=== PATIENT | female | born 1945 | race Caucasian/White ===

== ENCOUNTER → 2016-10-26 | Outpatient (CLI) | payer OTHER ==
[~2016-10-26] MED LIST: ASPEC81 PO; GLC/500 PO
--- NOTE | 2016-10-26 12:31 | MAMMOGRAPHY REPORT ---
BILATERAL DIGITAL SCREENING MAMMOGRAM WITH CAD: 10/26/2016 CLINICAL HISTORY: Routine screening examination. TECHNIQUE: Bilateral CC, MLO and XCCL views were obtained. Current study was also evaluated with a Computer Aided Detection (CAD) system. COMPARISON: Comparison is made to exams dated: 10/23/2015 mammogram, 07/18/2013 mammogram, 07/22/2014 mammogram, 07/16/2012 mammogram, 07/18/2011 ultrasound, and 03/15/2010 mammogram - [facility]. BREAST COMPOSITION: The tissue of both breasts is heterogeneously dense, which may obscure small ma sses. FINDINGS: There is a newly visualized 8.4 mm mass in the lateral posterior left breast, best seen o n the CC and XCCL views but thought to project superiorly on the MLO view. Further evaluation with spot compression tomosynthesis views and targeted ultrasound are recommended. There are 2 stable masses in the anterior and posterior left breast. The lobulated anterior mass me asures 7.6 mm, and the upper outer far posterior mass measures 5.5 mm. Both of these masses are unc hanged mammographically dating back to at least 03/12/2009, therefore likely benign. There is stabl e asymmetry in the lateral posterior right breast on the CC view. Benign coarse calcifications and a stable metallic marker in the right breast. No other suspicious mass, architectural distortion or cluster of microcalcifications is seen. IMPRESSION: ACR BI-RADS CATEGORY 0: INCOMPLETE EVALUATION: NEED ADDITIONAL IMAGING EVALUATION The newly visualized a 0.4 mm mass in the left lateral posterior breast needs additional evaluation. The patient will be called to schedule an appointment. Approximately 10% of breast cancers are not detected with mammography. A negative mammographic repor t should not delay biopsy if a clinically suggestive mass is present. Jane Canas M.D. ay/:10/26/2016 08:18:41 Fancy Stitcher: Francine GUADARRAMA(Osiris)(James), [facility] letter sent: Addl Imaging 0 BI-RADS Code: ACR BI-RADS Category 0: Incomplete Evaluation: Need Additional Imaging Evaluation
== END | disposition home or self-care (01) ==
LOC: C.MAMM 07:18
PROVIDERS: ATTEND Family Medicine
DX: Z12.31 Encounter for screening mammogram for malignant neoplasm of breast (principal); N63 Unspecified lump in breast

== ENCOUNTER → 2016-11-09 | Outpatient (CLI) | payer OTHER ==
--- NOTE | 2016-11-09 13:35 | MAMMOGRAPHY REPORT ---
UNILATERAL LEFT DIGITAL DIAGNOSTIC MAMMOGRAM TOMOSYNTHESIS AND TARGETED LEFT ULTRASOUND: 11/09/2016 CLINICAL HISTORY: 71-year-old woman called back from screening mammography for a possible new mass i n the upper outer posterior left breast. TECHNIQUE: Spot compression left CC and MLO to the digital and tomosynthesis images were obtained. COMPARISON: Comparison is made to exams dated: 10/26/2016 mammogram, 10/23/2015 mammogram, 07/22/2014 ma mmogram, 07/18/2013 mammogram, 07/16/2012 mammogram, and 07/18/2011 ultrasound - [facility]. BREAST COMPOSITION: The tissue of the left breast is heterogeneously dense, which may obscure small masses. FINDINGS: There are at least 5 masses identified within the visualized left breast. The largest ci rcumscribed oval mass is in the subareolar breast measuring 21.0 x 9.8 x 15.0 mm. A second lobulate d and circumscribed mass in the anterior upper outer left breast measures 7.9 x 6.9 mm. A reniform 5.8 mm mass with central lucent notch compatible with a lymph node is identified in the upper outer posterior left breast. A rounded circumscribed 7 x 5 mm mass is seen in the upper outer posterior b reast, projecting over the pectoralis muscle on the MLO view. The fifth mass just anterior to the f ourth also in the upper outer posterior left breast and projecting over the pectoralis muscle is par tially circumscribed but partially obscured measuring 9 x 6 mm. Further evaluation with ultrasound was performed. Real-time high resolution sonographic evaluation was performed in the upper outer quadrant of the le ft breast. In the left axilla a morphologically normal lymph node is identified. In the subareolar /retroareolar breast a benign anechoic simple cyst is again seen correlating with the dominant mammo graphic mass. In the 2:00 left breast, 1 cm from the nipple, there is a lobulated hypoechoic solid mass measuring 6.9 x 11.2 x 3.7 mm. This correlates with a mass that has been stable mammographical ly dating back to at least 03/12/2009, therefore likely benign. In the 1:00 left breast, 8 cm from the nipple, there is a round nearly anechoic cystic appearing mass measuring 4.9 x 5.1 x 5.0 mm. Ho wever, there is isoechoic nodular tissue within that does not demonstrate vascularity. It is unclea r if this could be artifactual or represents an internal solid nodular component. Nevertheless, cys t aspiration is recommended to exclude the possibility of any residual solid component. There is a hypoechoic solid vascular mass with microlobulated borders in the 1:00 left breast, 7 cm from the ni pple, measuring 6.4 x 5.6 x 8.3 mm. This is thought to correlate with the mammographic mass with pa rtially obscured borders. Review of prior ultrasounds. Demonstrate this mass in the past. Therefo re, it is considered indeterminate and definitive characterization with ultrasound guided core biops y is recommended. A morphologically normal intramammary lymph node is identified in the 3:00 left b reast, 8 cm from the nipple with a thin cortex measuring 0.8 mm. This is thought to correlate with the fifth mammographic mass as described above. IMPRESSION: ACR BI-RADS CATEGORY 4B: INTERMEDIATE SUSPICION FOR MALIGNANCY, TARGETED ULTRASOUND ACR BI-RADS CATEGORY 4B: INTERMEDIATE SUSPICION FOR MALIGNANCY 1. Ultrasound guided core biopsy is recommend for an indeterminate solid vascular mass in the 1:00 left breast, 7 cm from the nipple, thought to correlate with a possibly new mammographic mass. 2. Ultrasound-guided cyst aspiration is recommended for a cystic appearing mass with possible inter nal solid component in the 1:00 left breast, 8 cm from the nipple. 3. Other masses in the anterior left breast have been stable dating back to 2008 and are therefore considered benign. 4. A morphologically normal intramammary lymph node is seen in the 3:00 left breast. These results and recommendations were discussed with the patient at the time of the exam. She tent atively scheduled the ultrasound guided core biopsy and cyst aspiration prior to leaving our departm ent. Approximately 10% of breast cancers are not detected with mammography. A negative mammographic repor t should not delay biopsy if a clinically suggestive mass is present. Jane Canas M.D. ay/:11/09/2016 10:43:28 Song Writer: Anila Argueta RT(R)(James), [facility] letter sent: Abnormal 4/5 BI-RADS Code: ACR BI-RADS Category 4B: Intermediate Suspicion For Malignancy Ultrasound BI-RADS: AC R BI-RADS Category 4B: Intermediate Suspicion For Malignancy
== END | disposition home or self-care (01) ==
LOC: C.MAMM 08:42
PROVIDERS: ATTEND Family Medicine
DX: N63 Unspecified lump in breast (principal)

== ENCOUNTER → 2016-11-10 | Outpatient (CLI) | payer OTHER ==
--- NOTE | 2016-11-10 13:31 | Discharge Instructions ---
Discharge Instructions Procedure Procedure Date: Nov 10, 2016. Reason for visit: Left Masses. Discharge Discharge Date: Nov 10, 2016. Discharge Diagnosis: status post breast biopsy Instructions Activity Recommendations: Additional Limitations (see below) Return to School/Work: no limitations Recommended Home Diet: No Limitations Provider Instructions: ACTIVITY RECOMMENDATIONS: * No lifting, pushing, pulling or exercising the affected side for three days. RETURN TO SCHOOL/WORK: * You may return to work/school after the procedure, but do not perform any strenuous activities for 24 to 48 hours. MEDICATIONS: * Tylenol (two 325 mg) every four to six hours if needed for mild pain (if not allergic to Tylenol). DIET: * Resume previous diet. SPECIAL CARE INSTRUCTIONS: * Keep biopsy site dry for 24 hours. May shower after 24 hours, but do not soak (bathe) incision. * May remove Tegaderm (plastic patch) tomorrow AFTER showering. * Leave the steri-strips on for one week. Allow the steri-strips to fall off by themselves. If not off after one week, you may remove them. You may place a Bandaid crosswise over the strips, if desired. * Apply ice 10 minutes on and 10 minutes off as needed. * Wear a bra at bedtime to sleep more comfortably for 2-3 days. * Your referring physician should have the results after approximately 5 to 7 business days. * Call for unusual bleeding, fever, drainage, etc or if you have any questions call during normal business hours or after hours call Dr Alcazar, [phone]. FOLLOW UP VISIT: Follow-up with Referring Physician as scheduled. Allergies Coded Allergies: No Known Allergies (Unverified , 12/22/15) Desean Soto Recommendations: Call your doctor if: * Temperature above 101 degrees * Pain not relieved by pain medicine ordered * There is increased drainage or redness from any incision * You have any unanswered questions or concerns. Your Doctors Instructions noted above were prepared by provider Margareth Alcazar. Patient Signature Section: Patient Instructions Signature Page Hawa Farrisant Patient (or Guardian) Signature/Date: I have read and understand the instructions given to me by my caregivers. Caregiver/RN/Doctor Signature/Date: The above-named patient and/or guardian has received patient instructions on this date. + Original Patient Signature Page (only) stays with chart. Please make copy for patient.
--- NOTE | 2016-11-10 15:20 | MAMMOGRAPHY REPORT ---
ASPIRATION LEFT BREAST: 11/10/2016 CLINICAL HISTORY: Left 1:00 breast mass. PATIENT CONSENT: The procedure and risks of ultrasound-guided cyst aspiration were discussed in full with the patient. Both oral and written consents were obtained. PROCEDURE DESCRIPTION: With ultrasound guidance, aseptic technique, and 1% lidocaine as a local anes thetic, the mass of concern in the left breast at 1:00, 8 cm from the nipple, was aspirated to compl etion. A small amount of bloody fluid was aspirated and sent to cytology for analysis. Direct pres sure was applied to the site immediately post procedure and hemostasis was achieved. The patient to lerated the procedure without complication. She was given wound care instructions. COMPARISON: Comparison is made to exams dated: 11/09/2016 mammogram, 10/23/2015 mammogram, 07/22/2014 m ammogram, 07/18/2013 mammogram, and 07/16/2012 mammogram - [facility]. IMPRESSION: ASPIRATION Successful ultrasound-guided aspiration of the left 1:00 breast cyst. A small amount of bloody flui d was aspirated and sent to cytology for analysis. The patient will receive pathology results from her referring physician. Margareth Alcazar M.D. ah/:11/10/2016 14:15:27 Attending Technologist: Ana GUADARRAMA(R)(M), [facility] Discharge Rn: Margareth Alcazar MD, [facility]
--- NOTE | 2016-11-10 15:20 | MAMMOGRAPHY REPORT ---
UNILATERAL LEFT DIGITAL DIAGNOSTIC MAMMOGRAM: 11/10/2016 CLINICAL HISTORY: Status post ultrasound-guided biopsy of the left 1:00 breast mass. TECHNIQUE: Postprocedural left CC and ML views were obtained. COMPARISON: Comparison is made to exams dated: 11/09/2016 mammogram, 10/26/2016 mammogram, 10/23/2015 ma mmogram, 07/22/2014 mammogram, 07/18/2013 mammogram, and 07/16/2012 mammogram - [facility]. BREAST COMPOSITION: The tissue of the left breast is heterogeneously dense, which may obscure small masses. FINDINGS: A new biopsy marker clip is seen within the left upper outer quadrant at the site of the biopsied 1:00 breast mass. Post biopsy changes are seen in the region, without evidence of a signif icant hematoma. IMPRESSION: POST PROCEDURE IMAGING FOR MARKER PLACEMENT New biopsy marker clip status post ultrasound-guided biopsy of the left 1:00 breast mass. Pathology results are pending. Approximately 10% of breast cancers are not detected with mammography. A negative mammographic repor t should not delay biopsy if a clinically suggestive mass is present. Margareth Alcazar M.D. /:11/10/2016 14:32:21 Gun Number: Ana GUADARRAMA(Osiris)(M), [facility] BI-RADS Code: Post Procedure Imaging For Marker Placement
--- NOTE | 2016-11-10 15:20 | MAMMOGRAPHY REPORT ---
ULTRASOUND GUIDED BIOPSY LEFT BREAST: 11/10/2016 CLINICAL HISTORY: Left 1 o'clock breast mass. PATIENT CONSENT: The procedure, risks and benefits were discussed with the patient and informed writ ten consent was obtained. A timeout was performed immediately prior to the procedure. PROCEDURE DESCRIPTION: With ultrasound guidance, aseptic technique, and lidocaine as the local anest hetic (1% lidocaine to anesthetize the skin and 1% lidocaine with epinephrine to anesthetize the oswaldo per tissues), the mass of concern in the left 1:00 breast was sampled 7 times with a 14-gauge Achiev e biopsy needle. Immediately thereafter, with ultrasound guidance, aseptic technique, and lidocaine as the local anesthetic, a metallic localizer clip was placed centrally in the mass. Direct pressu re was applied to the site immediately post procedure and hemostasis was achieved. Postprocedure un ilateral mammograms were performed to confirm placement of the clip in the expected location of the breast mass. The patient tolerated the procedure without complication. She was given wound care in structions. The specimens were sent to pathology for analysis. COMPARISON: Comparison is made to exams dated: 11/09/2016 ultrasound, 11/09/2016 mammogram, 10/26/2016 mammogram, 07/22/2014 mammogram, 10/23/2015 mammogram, and 07/18/2013 mammogram - [facility]. IMPRESSION: ULTRASOUND GUIDED BIOPSY Ultrasound guided core needle biopsy of the left 1:00 breast mass, with clip placement. The patient will receive pathology results from her ordering physician. Margareth Alcazar M.D. ah/:11/10/2016 14:30:21 Attending Technologist: Ana GUADARRAMA(Osiris)(M), [facility] Sales Agent Pest Control Service: Margareth Alcazar MD, [facility]
== END | disposition home or self-care (01) ==
LOC: C.MAMM 12:35
PROVIDERS: ATTEND Family Medicine
DX: N63 Unspecified lump in breast (principal)

== ENCOUNTER → 2017-06-15 | Outpatient (CLI) | payer OTHER ==
--- NOTE | 2017-06-15 12:28 | MAMMOGRAPHY REPORT ---
UNILATERAL LEFT DIGITAL DIAGNOSTIC MAMMOGRAM TOMOSYNTHESIS WITH CAD: 06/15/2017 CLINICAL HISTORY: History of left breast cancer status post lumpectomy November 2016. She did not have radiation therapy. The patient reports no current complaints. TECHNIQUE: Breast tomosynthesis in addition to standard 2D mammography was performed. Current study was also evaluated with a Computer Aided Detection (CAD) system. Left CC and MLO 2-D and tomosynthes is images and spot magnification left CC and ML views were obtained. COMPARISON: Comparison is made to exams dated: 11/10/2016 mammogram, 11/10/2016 aspiration, 11/10/2016 ultrasound biopsy, 11/09/2016 ultrasound, 11/09/2016 mammogram, and 10/26/2016 mammogram - [facility]. BREAST COMPOSITION: The tissue of the left breast is heterogeneously dense, which may obscure small masses. FINDINGS: There are new postsurgical changes in the left upper outer quadrant posteriorly from prior lumpectomy, including new density and architectural distortion at the lumpectomy bed. A linear scar marker denotes a scar on the left upper outer breast. Spot magnification views of the lumpectomy bed demonstrate no suspicious masses or clusters of microcalcifications. A benign 7 mm intramammary lym ph node in the left lateral posterior breast is stable. The remainder of the left breast is stable compared to prior exams, without suspicious masses, calcif ications, or areas of architectural distortion noted. Lobulated circumscribed benign-appearing 7 mm mass in the left lateral anterior breast is stable compared to multiple prior exams. Fluctuating ova l circumscribed benign-appearing 2.1 cm mass in the left subareolar breast is again noted, and was sh own to represent a benign cyst on prior 2010 ultrasound exam. IMPRESSION: ACR-BI-RADS CATEGORY 3: PROBABLY BENIGN Expected postsurgical changes in the left breast from prior lumpectomy, without mammographic evidence of malignancy in the left breast. Recommend bilateral diagnostic tomosynthesis mammograms in 6 ja hs, to reevaluate the left breast postsurgical changes and for routine mammography of the right breas t. The patient has been verbally notified of the results. Approximately 10% of breast cancers are not detected with mammography. A negative mammographic report should not delay biopsy if a clinically suggestive mass is present. Margareth Alcazar M.D. /:06/15/2017 11:03:22 Core Analysis Operator: Francine Mclean, [facility] letter sent: Personal History 3 BI-RADS Code: ACR-BI-RADS Category 3: Probably Benign
== END | disposition home or self-care (01) ==
LOC: C.MAMM 10:38
PROVIDERS: ATTEND Surgery
DX: Z08 Encounter for follow-up examination after completed treatment for malignant neoplasm (principal); Z85.3 Personal history of malignant neoplasm of breast; Z98.890 Other specified postprocedural states

== ENCOUNTER → 2017-09-19 | Outpatient (CLI) | payer OTHER ==
[2017-09-19 11:44] LABS: BASO % 0.5 %; BASO ABS # 0.03 K/uL (0-0.2); EOS % 3.6 %; EOS ABS # 0.22 K/uL (0-0.5); HEMATOCRIT 39.6 % (37-47); HEMOGLOBIN 13.2 g/dL (12.0-16.0); IG# 0.01 K/uL (0.00-0.02); LYMPH % 32.4 %; LYMPH ABS # 1.96 K/uL (1.2-3.4); MEAN CELL VOLUME 94.7 fL (80-100); MEAN CORPUSCULAR HEMOGLOBIN 31.6 pg (25-34); MEAN CORPUSCULAR HGB CONC 33.3 g/dl (32-36); MEAN PLATELET VOLUME 10.2 fL (7.4-10.4); MONO % 13.7 %; MONO ABS # 0.83 K/uL (0.11-0.59); NEUT % 49.6 %; PLATELET COUNT 272 K/uL (130-400); RED CELL DISTRIBUTION WIDTH CV 13.9 % (11.5-14.5); WHITE BLOOD COUNT 6.05 K/uL (4.8-10.8)
[2017-09-19 11:50] LABS: INR 0.9 (0.9-1.1)
== END | disposition home or self-care (01) ==
LOC: C.LABSPEC 11:06
PROVIDERS: ATTEND Family Medicine
DX: Z01.812 Encounter for preprocedural laboratory examination (principal)

== ENCOUNTER → 2017-09-29 | Outpatient (CLI) | payer OTHER ==
--- NOTE | 2017-09-29 14:42 | EXERCISE STRESS ECHO ---
*NOTICE TO RECEIVING LIBERTARIAN AGENCY This information is strictly Confidential and protected under [place] law. [place] law prohibits you from making any further disclosure of this information unless further disclosure is expressly permitted by the written consent of the person to whom it pertains or is authorized by law. A general authorization for the release of medical or other information is not sufficient for this purpose. Hospital accepts no responsibility if the information is made available to any other person, INCLUDING THE PATIENT. Interpretation Summary * Name: KELVIN HAGER Study Date: 09/29/2017 09:25 AM BP: 157/88 mmHg * Patient Location: [facility] HR: 91 * : 1945 (M/d/yyyy) Gender: Female Height: 70 in * Age: 72 yrs Ethnicity: CA Weight: 178 lb * Ordering Physician: Reyna Dolan * Referring Physician: Reyna Dolan D.O. * Performed By: Taisha Portillo RDCS * * Reason For Study: Abnormal EKG * BSA: 2.0 m2 * -- Conclusions -- * 1. Negative exercise stress echo for ischemia at >110% MPHR. * 2. Negative stress ECG for ischemia. * 3. Above average functional capacity. Exercised 6:21 min, achieved 7.5 METS. * 4. Normal hemodynamic response to exercise. * 5. Normal resting LV size and function. LVEF 60-65%. No regional wall motion abnormalities. Mild concentric LVH. Normal RV size and function. No significant valvular abnormalities. Procedure Details * ECHOEX, CPT #66467 * ECHO DOPPLER, CPT #[id number] * ECHO COLOR FLOW, CPT #[id number] Left Ventricle * The left ventricle is grossly normal size. * There is mild concentric left ventricular hypertrophy. * Ejection Fraction = 55-60%. * The left ventricular ejection fraction increases normally with stress. The left ventricular end-systolic cavity size reduces post-stress (normal response). The left ventricular wall motion with stress is normal. Right Ventricle * The right ventricle is grossly normal size. * The right ventricular systolic function is normal as assessed by tricuspid annular plane systolic excursion (TAPSE) (normal >1.5 cm). Atria * The left atrial size is normal. * Right atrial size is normal. * No ASD detected; PFO is not assessed. Mitral Valve * The mitral valve is grossly normal. * There is no mitral valve stenosis. * There is no mitral regurgitation noted. Tricuspid Valve * The tricuspid valve is not well visualized, but is grossly normal. * There is no tricuspid stenosis. * There is trace tricuspid regurgitation. Aortic Valve * The aortic valve opens well. * The aortic valve is trileaflet. * No hemodynamically significant valvular aortic stenosis. * There is no significant aortic regurgitation. Great Vessels * The aortic root and proximal ascending aorta are normal sized. Pericardium * There is no pericardial effusion. Stress Parameters * Normal baseline electrocardiogram. * Stress ECG: No ST changes. No arrhythmias. * Arrhythmia induced during stress: occasional PVC's. * Rest heart rate was '91' BPM. * Rest blood pressure was '157/88' * Maximum heart rate achieved was 171 bpm. * Maximum heart rate was 114 % of maximum age-predicted heart rate. * Maximum blood pressure was '197/86' * Total exercise time was '06:21' * Maximum exercise MET level achieved was '7.50' METS * Maximum treadmill speed was '3.40' miles per hour. * Maximum treadmill elevation was '14.00'% grade. MMode 2D Measurements and Calculations IVSd 1.2 cm IVSs 1.3 cm LVIDd 4.5 cm LVIDs 3.1 cm LVPWd 1.0 cm LVPWs 2.0 cm IVS/LVPW 1.2 FS 31.2 % EDV(Teich) 94.2 ml ESV(Teich) 38.5 ml EF(Teich) 59.1 % EDV(cubed) 93.3 ml ESV(cubed) 30.4 ml EF(cubed) 67.4 % % IVS thick 6.9 % % LVPW thick 91.7 % LV mass(C)d 179.3 grams LV mass(C)dI 90.3 grams/m\S\2 LV mass(C)s 189.6 grams LV mass(C)sI 95.5 grams/m\S\2 SV(Teich) 55.6 ml SI(Teich) 28.0 ml/m\S\2 SV(cubed) 62.9 ml SI(cubed) 31.7 ml/m\S\2 Ao root diam 3.2 cm Ao root area 8.2 cm\S\2 ACS 1.9 cm LA dimension 3.3 cm LA/Ao 1.0 LVAd ap4 27.3 cm\S\2 LVLd ap4 7.1 cm EDV(MOD-sp4) 88.6 ml EDV(sp4-el) 88.9 ml LVAs ap4 14.8 cm\S\2 LVLs ap4 5.6 cm ESV(MOD-sp4) 33.8 ml ESV(sp4-el) 33.3 ml EF(MOD-sp4) 61.9 % EF(sp4-el) 62.5 % LVAd ap2 26.6 cm\S\2 LVLd ap2 7.2 cm EDV(MOD-sp2) 82.6 ml EDV(sp2-el) 84.0 ml LVAs ap2 14.5 cm\S\2 LVLs ap2 5.9 cm ESV(MOD-sp2) 31.3 ml ESV(sp2-el) 30.3 ml EF(MOD-sp2) 62.2 % EF(sp2-el) 63.9 % LVLd %diff 0.40 % EDV(MOD-bp) 86.8 ml LVLs %diff 4.4 % ESV(MOD-bp) 33.4 ml EF(MOD-bp) 61.5 % SV(MOD-sp4) 54.8 ml SI(MOD-sp4) 27.6 ml/m\S\2 SV(MOD-sp2) 51.4 ml SI(MOD-sp2) 25.9 ml/m\S\2 SV(MOD-bp) 53.4 ml SI(MOD-bp) 26.9 ml/m\S\2 SV(sp4-el) 55.6 ml SI(sp4-el) 28.0 ml/m\S\2 SV(sp2-el) 53.7 ml SI(sp2-el) 27.0 ml/m\S\2 Doppler Measurements and Calculations MV E max liss 26.4 cm/sec MV A max liss 88.4 cm/sec MV E/A 0.30 MV dec time 0.14 sec Ao V2 max 133.5 cm/sec Ao max PG 7.1 mmHg Ao max PG (full) 2.3 mmHg LV V1 max PG 4.8 mmHg LV V1 max 109.5 cm/sec PA V2 max 102.7 cm/sec PA max PG 4.2 mmHg TR max liss 239.4 cm/sec
== END | disposition home or self-care (01) ==
LOC: C.CPL 09:20
PROVIDERS: ATTEND Family Medicine
DX: R94.31 Abnormal electrocardiogram [ECG] [EKG] (principal)

== ENCOUNTER → 2017-12-14 | Outpatient (CLI) | payer OTHER ==
--- NOTE | 2017-12-15 07:22 | MAMMOGRAPHY REPORT ---
BILATERAL DIGITAL DIAGNOSTIC MAMMOGRAM TOMOSYNTHESIS WITH CAD: 12/14/2017 CLINICAL HISTORY: History of left breast cancer status post lumpectomy November 2016. The patient did n ot have radiation therapy. She reports no current complaints. TECHNIQUE: Breast tomosynthesis in addition to standard 2D mammography was performed. Current study was also evaluated with a Computer Aided Detection (CAD) system. Bilateral CC and MLO 2D and tomosyn thesis images and spot magnification left CC and ML views were obtained. COMPARISON: Comparison is made to exams dated: 06/15/2017 mammogram, 11/10/2016 mammogram, 11/10/2016 a spiration, 11/10/2016 ultrasound biopsy, 11/09/2016 ultrasound, and 11/09/2016 mammogram - [facility]. BREAST COMPOSITION: The tissue of both breasts is heterogeneously dense, which may obscure small mas ses. FINDINGS: Again noted are postsurgical changes in the left upper outer quadrant from prior lumpectomy , including mild density and architectural distortion at the lumpectomy bed. Spot magnification view s of the lumpectomy bed demonstrate no suspicious masses or clusters of microcalcifications. The remainder of both breasts are stable compared to prior exams, without suspicious masses, calcific ations, or areas of architectural distortion noted. A biopsy clip is again noted within the right an terior breast. A few scattered bilateral benign-appearing calcifications are not significantly oneill ed. A circumscribed benign-appearing 2.2 cm mass within the left subareolar breast is again noted an d was shown to represent a benign cyst on the prior 2010 ultrasound exam. Another circumscribed manuel gn-appearing 8 mm mass in the left upper outer anterior breast is stable compared to multiple prior e xams. IMPRESSION: ACR-BI-RADS CATEGORY 3: PROBABLY BENIGN Stable posttreatment changes in the left breast, without mammographic evidence of malignancy in eithe r breast. Recommend follow-up diagnostic tomosynthesis mammograms of the left breast in 6 months to reevaluate left breast post surgical changes. The patient has been verbally notified of the results. Approximately 10% of breast cancers are not detected with mammography. A negative mammographic report should not delay biopsy if a clinically suggestive mass is present. Margareth Alcazar M.D. ah/:12/14/2017 10:49:46 Sheet Pile Hammer Operator: Anila GUADARRAMA(R)(M), [facility] letter sent: Personal History 3 BI-RADS Code: ACR-BI-RADS Category 3: Probably Benign
== END | disposition home or self-care (01) ==
LOC: C.MAMM 10:21
PROVIDERS: ATTEND Family Medicine
DX: Z85.3 Personal history of malignant neoplasm of breast (principal); Z08 Encounter for follow-up examination after completed treatment for malignant neoplasm; Z98.890 Other specified postprocedural states